=== PATIENT | female | born 1970 | race African-American/Black ===

== ENCOUNTER 2017-03-06 12:15 | Emergency (ER) | END 2017-03-06 13:33 | disposition home or self-care (01) ==

== ENCOUNTER 2017-06-11 14:12 | Emergency (ER) | END 2017-06-11 17:27 | disposition home or self-care (01) ==

== ENCOUNTER 2017-06-24 20:47 | Emergency (ER) | END 2017-06-24 22:40 | disposition home or self-care (01) ==

== ENCOUNTER 2017-09-11 20:02 | Emergency (ER) | END 2017-09-12 00:45 | disposition home or self-care (01) ==

== ENCOUNTER 2017-09-12 07:30 | Emergency (ER) | END 2017-09-12 09:52 | disposition home or self-care (01) ==